=== PATIENT | female | born 1965 | race Caucasian/White ===

== ENCOUNTER 2018-05-05 07:47 | Emergency (ER) | payer OTHER ==
[~2018-05-05] VITALS: Ht 157.5 cm; Wt 77.1 kg
[~2018-05-05 07:47] MED LIST: INTESTINEX1 CA1 PO; Levsin/Sl 0.125 MG TAB.SUBL PO; ZOFRAN ODT4 MG/UDTAB PO
[2018-05-05] MEDS ORDERED: METOPROLOL SUCC25 MG (08:17)
[2018-05-05] MEDS ORDERED: LOSARTAN POTASS50 MG (08:17)
== END 2018-05-05 16:37 | disposition home or self-care (01) ==
LOC: ER 07:47
DX: K52.9 Noninfective gastroenteritis and colitis, unspecified (principal)

== ENCOUNTER 2018-07-08 13:52 | Emergency (ER) | payer OTHER ==
[~2018-07-08] VITALS: Ht 160 cm; Wt 78.5 kg
[~2018-07-08 13:52] MED LIST changes: +LOSARTAN POTASS50 MG; +METOPROLOL SUCC25 MG
[2018-07-08] MEDS ORDERED: TOPROL XL50 M1 (14:16)
[2018-07-08] MEDS ORDERED: SYNTHROID75 MCG (14:16)
== END 2018-07-08 18:37 | disposition home or self-care (01) ==
LOC: ER 13:52
DX: K02.9 Dental caries, unspecified (principal)

== ENCOUNTER 2018-12-04 20:47 | Emergency (ER) | payer OTHER ==
[~2018-12-04] VITALS: Ht 160 cm; Wt 79.4 kg
[~2018-12-04 20:47] MED LIST changes: +SYNTHROID75 MCG; +TOPROL XL50 M1
[2018-12-04] MEDS ORDERED: ZANTAC150 M3 (21:03)
[2018-12-04] MEDS ORDERED: PRILOSEC10 MG (21:04)
[2018-12-05] MEDS ORDERED: PEPCID AC20 MG PO (00:20)
[2018-12-05] MEDS ORDERED: ORPHENADRINE C100 MG PO (00:20)
[2018-12-05] MEDS ORDERED: CELECOXIB200 MG PO (00:20)
[2018-12-05] MEDS ORDERED: ZOFRAN ODT4 MG SL (00:20)
== END 2018-12-05 00:39 | disposition home or self-care (01) ==
LOC: ER 20:47
DX: M25.511 Pain in right shoulder (principal); K29.70 Gastritis, unspecified, without bleeding

== ENCOUNTER → 2019-04-04 | Day surgery (SDC) | payer OTHER ==
[~2019-04-04] MED LIST changes: +CELECOXIB200 MG PO; +ORPHENADRINE C100 MG PO; +PEPCID AC20 MG PO; +PRILOSEC10 MG; +ZANTAC150 M3; +ZOFRAN ODT4 MG SL
== END | disposition home or self-care (01) ==
LOC: ADM 03-13 07:45 → AMB-ENDOS 03-21 07:45
DX: K57.30 Diverticulosis of large intestine without perforation or abscess without bleeding (principal); K92.1 Melena; K64.8 Other hemorrhoids

== ENCOUNTER 2019-10-28 22:50 | Emergency (ER) | payer OTHER ==
[~2019-10-28] VITALS: Ht 157.5 cm; Wt 79.4 kg
[2019-10-29] MEDS ORDERED: VISTARIL50 MG PO (07:36)
== END 2019-10-29 08:56 ==
LOC: ER 22:50 → CPU-OBS 22:55 → ER 10-29 08:56
DX: R00.2 Palpitations (principal); R07.89 Other chest pain; F06.4 Anxiety disorder due to known physiological condition
CPT/HCPCS: G0378; G0379; 93005

== ENCOUNTER 2019-11-19 04:27 | Emergency (ER) | payer OTHER ==
[~2019-11-19] VITALS: Ht 157.5 cm; Wt 78.5 kg
[~2019-11-19 04:27] MED LIST changes: +VISTARIL50 MG PO
[2019-11-19] MEDS ORDERED: VALSARTAN-HCTZ1 EAC2 (04:40)
[2019-11-19] MEDS ORDERED: LIPITOR40 M1 (04:41)
[2019-11-19] MEDS ORDERED: PREVACID30 MG (04:41)
== END 2019-11-19 12:57 | disposition home or self-care (01) ==
LOC: ER 04:27
DX: K52.9 Noninfective gastroenteritis and colitis, unspecified (principal); R10.32 Left lower quadrant pain

== ENCOUNTER 2020-12-28 22:10 | Emergency (ER) | payer OTHER ==
[~2020-12-28] VITALS: Ht 157.5 cm; Wt 79.4 kg
[~2020-12-28 22:10] MED LIST changes: +LIPITOR40 M1; +PREVACID30 MG; +VALSARTAN-HCTZ1 EAC2
[2020-12-28] MEDS ORDERED: TOPROL XL100 M1 PO (22:17)
[2020-12-29] MEDS ORDERED: PYRIDIUM DS200 MG PO (12:24)
[2020-12-29] MEDS ORDERED: LEVSIN/SL0.125 MG PO (12:24)
[2020-12-29] MEDS ORDERED: CELEBREX100 MG PO (12:24)
[2020-12-29] MEDS ORDERED: PEPCID AC20 MG PO (12:38)
== END 2020-12-29 13:23 | disposition home or self-care (01) ==
LOC: ER 22:10
DX: K29.60 Other gastritis without bleeding (principal); T61.774A Other fish poisoning, undetermined, initial encounter; N39.0 Urinary tract infection, site not specified; R10.2 Pelvic and perineal pain; Y92.89 Other specified places as the place of occurrence of the external cause; Z03.818 Encounter for observation for suspected exposure to other biological agents ruled out

== ENCOUNTER 2022-10-07 21:36 | Emergency (ER) | payer OTHER ==
[~2022-10-07] VITALS: Ht 162.6 cm; Wt 83.5 kg
[~2022-10-07 21:36] MED LIST changes: +CELEBREX100 MG PO; +LEVSIN/SL0.125 MG PO; +PYRIDIUM DS200 MG PO; +TOPROL XL100 M1 PO
== END 2022-10-07 22:55 | disposition home or self-care (01) ==
LOC: ER 21:36
DX: H92.01 Otalgia, right ear (principal); Z88.5 Allergy status to narcotic agent; Z88.0 Allergy status to penicillin; I49.9 Cardiac arrhythmia, unspecified; E03.9 Hypothyroidism, unspecified; I10 Essential (primary) hypertension; Z90.89 Acquired absence of other organs; Z82.49 Family history of ischemic heart disease and other diseases of the circulatory system

== ENCOUNTER 2022-10-16 23:30 | Emergency (ER) | payer OTHER ==
[~2022-10-16] VITALS: Ht 157.5 cm; Wt 83.0 kg
[~2022-10-16 23:30] MED LIST changes: +FAMOTIDINE20 MG PO
[2022-10-17] MEDS ORDERED: SYNTHROID75 MCG PO
[2022-10-17] MEDS ORDERED: VALSARTAN-HCTZ1 EAC1 PO
[2022-10-17] MEDS ORDERED: METFORMIN HCL500 M1 PO
[2022-10-17] MEDS ORDERED: ATORVASTATIN CA40 MG PO (00:01)
== END 2022-10-17 02:44 | disposition home or self-care (01) ==
LOC: ER 23:30
DX: E11.649 Type 2 diabetes mellitus with hypoglycemia without coma (principal); E03.9 Hypothyroidism, unspecified; E11.9 Type 2 diabetes mellitus without complications; Z79.84 Long term (current) use of oral hypoglycemic drugs; I10 Essential (primary) hypertension; Z88.0 Allergy status to penicillin; Z91.041 Radiographic dye allergy status; Z88.6 Allergy status to analgesic agent

== ENCOUNTER 2023-08-17 07:18 | Day surgery (SDC) | payer OTHER ==
[~2023-08-17 07:18] MED LIST changes: +ATORVASTATIN CA40 MG PO; +METFORMIN HCL500 M1 PO; +SYNTHROID75 MCG PO; +VALSARTAN-HCTZ1 EAC1 PO
== END 2023-08-17 12:50 | disposition home or self-care (01) ==
LOC: AMB-ENDOS 07:18 → CIR.AMB 13:15 → AMB-ENDOS 13:15
PROVIDERS: ATTEND Colon & Rectal Surgery
DX: D12.3 Benign neoplasm of transverse colon (principal); K62.5 Hemorrhage of anus and rectum; K62.89 Other specified diseases of anus and rectum; Z88.0 Allergy status to penicillin; Z91.041 Radiographic dye allergy status

== ENCOUNTER 2023-09-30 23:05 | Emergency (ER) | payer OTHER ==
[~2023-09-30] VITALS: Ht 160 cm; Wt 81.2 kg
[2023-10-01] MEDS ORDERED: PROTONIX40 MG PO (00:34)
[2023-10-01 08:34] LABS: HEMATOCRIT 37.7 % (36.0-45.00); MEAN CELL VOLUME 90.2 fL (80.00-100.00); MEAN CORPUSCULAR HGB CONC 34.3 g/dl (32.0-36.0); PLATELET COUNT 170 K/uL (150-450); RED BLOOD COUNT 4.18 M/uL (4.00-6.00); RED CELL DISTRIBUTION WIDTH 12.8 % (11.5-14.5)
== END 2023-10-01 11:06 ==
LOC: ER 23:05
DX: B34.8 Other viral infections of unspecified site (principal); Z20.822 Contact with and (suspected) exposure to COVID-19

== ENCOUNTER 2023-12-19 14:47 | Inpatient (IN) | payer OTHER ==
[~2023-12-19] VITALS: Ht 160 cm; Wt 80.3 kg
[~2023-12-19 14:47] MED LIST changes: +PROTONIX40 MG PO
--- NOTE | 2023-12-19 15:27 | NUR ---
SE RECIBE PTE FEMENINA DE 58 ANOS ALERT AY ORIENTADA X3 QUIEN REFIER EDOLOR EN CUADRANTE INFERIOR IZQ DE ABDOMEN SE PALPA Y EL MISMO ES BLANDO Y DEPRESIBLE. PTE INDICA DOLOR EN ANO PUNZANTE. SE MONITOREAN S/V Y SE UBICA EN PASILLO.
[2023-12-19] MEDS ORDERED: 0.9 % SODIUM CHLORIDE 1,000 ML IV ONE (16:15)
--- NOTE | 2023-12-19 16:37 | NUR ---
SE EDUCA A PTE SOBRE [facility] MEDICO, SE JENNIFER MUESTRAS DE LABORATORIO UTILIZNDO MEDIDAS ASEPTICAS. SE COLOCA H/L DOMINIQUE DE EDEMA. SE COLOCA IV FLUIDS A PTE.
[2023-12-19 17:05] LABS: HEMOGLOBIN 14.9 g/dL (12.0-15.00); MEAN CORPUSCULAR HEMOGLOBIN 31.2 pg (27.00-32.0); MEAN CORPUSCULAR HGB CONC 33.9 g/dl (32.0-36.0); PLATELET COUNT 192 K/uL (150-450); RED BLOOD COUNT 4.78 M/uL (4.00-6.00); RED CELL DISTRIBUTION WIDTH 12.7 % (11.5-14.5)
[2023-12-19] MEDS ORDERED: HYOSCYAMINE SULFATE 0.125 MG TAB.SUBL SL ONE (17:15)
[2023-12-19] MEDS ORDERED: ACETAMINOPHEN 500 MG GEL..CAP PO ONE (17:15)
[2023-12-19 17:25] LABS: INR 1.03; PARTIAL THROMBOPLASTIN TIME 28.2 SECONDS (22.0-34.0); PROTHROMBIN TIME 10.8 SECONDS (9.0-11.5)
[2023-12-19 17:31] LABS: URINE APPEARANCE Clear; URINE BILIRRUBIN Negative (NEGATIVE); URINE BLOOD Negative; URINE COLOR Yellow; URINE GLUCOSE Negative (NEGATIVE); URINE LEUKOCYTE Negative; URINE NITRATE Negative; URINE PROTEIN Negative (NEGATIVE); URINE UROBILINOGEN 0.2 E.U./dl
[2023-12-19 17:44] LABS: URINE BACTERIA 0 uL (0.0-1933); URINE EPITHELIAL CELLS 1.2 uL (0.0-38.8); URINE RBC 1.2 uL (0.0-20.8); URINE WBC 0.7 uL (0.0-23.2)
[2023-12-19] MEDS ORDERED: FAMOTIDINE/PF 20 MG/2 ML VIAL IV PUSH ONE (17:45)
[2023-12-19] MEDS ORDERED: ERTAPENEM SODIUM 1,000 MG VIAL IV ONE (19:00)
[2023-12-19 19:04] LABS: ALBUMIN 3.7 gm/dL (3.4-5.0); BILIRUBIN TOTAL 0.63 mg/dL (0.3-1.2); C-REACTIVE PROTEIN 0.49 MG/DL (0.00-0.29); CALCIUM 9.4 mg/dL (8.5-10.1); CREATININE SERUM 0.79 mg/dL (0.55-1.02); GFR 75.01; GLOBULINA 3.8 G/DL (2.4-3.5); POTASSIUM 3.75 mEq/L (3.5-5.1); TOTAL PROTEIN 7.5 gm/dL (6.4-8.2)
[2023-12-19] MEDS ORDERED: PANTOPRAZOLE SODIUM 40 MG/VIAL VIAL IV PUSH ONE (19:30)
[2023-12-19] MEDS ORDERED: ONDANSETRON HCL 4 MG in 0.9 % SODIUM CHLORIDE 50 ML IV PRN (21:30)
[2023-12-19] MEDS ORDERED: ENALAPRILAT DIHYDRATE 1.25 MG/ML VIAL IV PRN (21:30)
[2023-12-19] MEDS ORDERED: 0.9 % SODIUM CHLORIDE 1,000 ML IV SCH (21:30)
[2023-12-19] MEDS ORDERED: DEXTROSE 50 % IN WATER 0.5 G/ML DISP.SYRIN IV PRN (21:30)
[2023-12-19] MEDS ORDERED: ACETAMINOPHEN 500 MG GEL..CAP PO PRN (21:30)
[2023-12-19] MEDS ORDERED: INSULIN LISPRO 1,000 UNIT/10 ML UNITS SUBCUTANEO PRN (21:30)
[2023-12-19] MEDS ORDERED: MEPERIDINE HCL/PF 25 MG/ML VIAL IM PRN (21:30)
[2023-12-19] MEDS ORDERED: HYOSCYAMINE SULFATE 0.125 MG TAB.SUBL PO ONE (21:45)
[2023-12-20] MEDS ORDERED: HYDROCORTISONE 2.5% 30 GM TUBE RECTAL SCH (09:00)
[2023-12-20] MEDS ORDERED: LEVOTHYROXINE SODIUM 75 MCG TABLET PO SCH (09:00)
[2023-12-20] MEDS ORDERED: ENOXAPARIN SODIUM 40 MG/0.4 ML SYRINGE SUBCUTANEO SCH (09:00)
[2023-12-20] MEDS ORDERED: PANTOPRAZOLE SODIUM 40 MG/VIAL VIAL IV SCH (09:00)
[2023-12-20 14:48] LABS: CALCIUM 9.2 mg/dL (8.5-10.1); CREATININE SERUM 0.77 mg/dL (0.55-1.02); GFR 77.27; POTASSIUM 3.8 mEq/L (3.5-5.1)
[2023-12-20] MEDS ORDERED: DEXTROSE 50 % IN WATER 0.5 G/ML DISP.SYRIN IV PRN (15:15)
[2023-12-20] MEDS ORDERED: ENALAPRILAT DIHYDRATE 1.25 MG/ML VIAL IV PRN (15:15)
[2023-12-20] MEDS ORDERED: INSULIN LISPRO 1,000 UNIT/10 ML UNITS SUBCUTANEO PRN (15:15)
[2023-12-20] MEDS ORDERED: ATORVASTATIN CALCIUM 40 MG TABLET PO SCH (17:00)
[2023-12-20] MEDS ORDERED: METOPROLOL SUCCINATE 100 MG TAB.SR.24H PO SCH (17:00)
[2023-12-20] MEDS ORDERED: AA 4.25%/CAL/LYTES/DEXT 5% 1,000 ML PERIFERAL SCH (17:00)
[2023-12-20] MEDS ORDERED: MEROPENEM 500 MG/VIAL VIAL IV SCH (20:00)
[2023-12-20] MEDS ORDERED: ERTAPENEM SODIUM 1,000 MG in 0.9 % SODIUM CHLORIDE 100 ML IV SCH (20:00)
[2023-12-21] MEDS ORDERED: PATIENTS OWN MEDICATION (MEDICAMENTO EN PISO) PO SCH ×2 (06:00→09:00)
[2023-12-21 06:30] LABS: MEAN CELL VOLUME 92.5 fL (80.00-100.00); MEAN CORPUSCULAR HGB CONC 34.6 g/dl (32.0-36.0); PLATELET COUNT 158 K/uL (150-450); RED BLOOD COUNT 3.67 M/uL (4.00-6.00); RED CELL DISTRIBUTION WIDTH 12.4 % (11.5-14.5)
[2023-12-21 07:17] LABS: CALCIUM 8.8 mg/dL (8.5-10.1); CREATININE SERUM 0.77 mg/dL (0.55-1.02); GFR 77.27; MAGNESIUM 2.2 mg/dL (1.8-2.4); PHOSPHOROUS 3.9 mg/dL (2.5-4.9); POTASSIUM 3.74 mEq/L (3.5-5.1); TSH 0.587 uIU/mL (0.358-3.74)
[2023-12-21 07:36] LABS: HEMOGLOBIN 11.7 g/dL (12.0-15.00); MEAN CORPUSCULAR HEMOGLOBIN 31.8 pg (27.00-32.0)
[2023-12-21] MEDS ORDERED: HYDROCHLOROTHIAZIDE 12.5 MG CAPSULE PO SCH (09:00)
[2023-12-21] MEDS ORDERED: HYOSCYAMINE SULFATE 0.125 MG TAB.SUBL SL SCH (12:32)
[2023-12-23 07:29] LABS: CREATININE SERUM 0.65 mg/dL (0.55-1.02); GFR 93.95; MAGNESIUM 2.6 mg/dL (1.8-2.4); PHOSPHOROUS 4.1 mg/dL (2.5-4.9); POTASSIUM 4.59 mEq/L (3.5-5.1)
[2023-12-23] MEDS ORDERED: LEVOTHYROXINE SODIUM 75 MCG TABLET PO SCH (09:00)
[2023-12-23 10:58] LABS: HEMATOCRIT 40.1 % (36.0-45.00); HEMOGLOBIN 13.6 g/dL (12.0-15.00); MEAN CELL VOLUME 92.9 fL (80.00-100.00); MEAN CORPUSCULAR HEMOGLOBIN 31.6 pg (27.00-32.0); PLATELET COUNT 180 K/uL (150-450); RED BLOOD COUNT 4.31 M/uL (4.00-6.00); RED CELL DISTRIBUTION WIDTH 12.1 % (11.5-14.5)
[2023-12-23] MEDS ORDERED: PREDNISOLONE 15 MG/5 ML ML PO SCH (11:00)
[2023-12-26 06:18] LABS: HEMATOCRIT 33.6 % (36.0-45.00); HEMOGLOBIN 11.5 g/dL (12.0-15.00); MEAN CELL VOLUME 91.6 fL (80.00-100.00); MEAN CORPUSCULAR HEMOGLOBIN 31.4 pg (27.00-32.0); MEAN CORPUSCULAR HGB CONC 34.3 g/dl (32.0-36.0); PLATELET COUNT 152 K/uL (150-450); RED BLOOD COUNT 3.66 M/uL (4.00-6.00); RED CELL DISTRIBUTION WIDTH 12.7 % (11.5-14.5)
[2023-12-26 07:03] LABS: ALBUMIN 2.9 gm/dL (3.4-5.0); ALKALINE PHOSPHATASE 64 U/L (50-136); ALT/SGPT 54 U/L (12-78); ANION GAP 10 (10.0-20.0); AST/SGOT 26 U/L (15-37); BILIRUBIN TOTAL 0.37 mg/dL (0.3-1.2); BILIRUBIN,CONJUGATED < 0.10 mg/dL (0.0-0.2); BILIRUBIN,UNCONJUGATED 0.27 mg/dL (0.0-0.6); BLOOD UREA NITROGEN 18 mg/dL (7-18); BUN CREA RATIO 23 (7.0-25.0); CALCIUM 8.6 mg/dL (8.5-10.1); CARBON DIOXIDE 29 mEq/L (21-32); CHLORIDE 107 mmol/L (98-107); CHOL HDL RATIO 3.7 (0-5.0); CHOLESTEROL 130 mg/dL (0-200); GFR 73.93; GLOBULINA 2.7 G/DL (2.4-3.5); GLUCOSE FASTING 87 mg/dL (65-100); HDL 35 mg/dl (40-60); LDL 68 mg/dl (0-130); OSMOLALITY SERUM 283 MOSM/KG (275-295); POTASSIUM 4.61 mEq/L (3.5-5.1); SODIUM 141 mmol/L (136-145); TOTAL PROTEIN 5.6 gm/dL (6.4-8.2); TRIGLYCERIDES 133 mg/dL (0-150); VLDL 26 (0-39)
[2023-12-26 07:10] LABS: INR 1.04; PARTIAL THROMBOPLASTIN TIME 26.7 SECONDS (22.0-34.0); PROTHROMBIN TIME 10.9 SECONDS (9.0-11.5)
[2023-12-26 09:20] LABS: UREA CLEARANCE 40.7 ML/MIN
[2023-12-27] MEDS ORDERED: MORPHINE SULFATE 4 MG/ML CARTRIDGE IV PRN (09:00)
[2023-12-27] MEDS ORDERED: RINGERS SOLUTION,LACTATED 1,000 ML IV SCH (09:00)
[2023-12-27] MEDS ORDERED: FAMOTIDINE/PF 20 MG/2 ML VIAL IV SCH (21:00)
[2023-12-28 06:08] LABS: HEMATOCRIT 34.7 % (36.0-45.00); HEMOGLOBIN 11.9 g/dL (12.0-15.00); MEAN CELL VOLUME 92.1 fL (80.00-100.00); MEAN CORPUSCULAR HEMOGLOBIN 31.5 pg (27.00-32.0); MEAN CORPUSCULAR HGB CONC 34.2 g/dl (32.0-36.0); PLATELET COUNT 136 K/uL (150-450); RED BLOOD COUNT 3.77 M/uL (4.00-6.00); RED CELL DISTRIBUTION WIDTH 12.3 % (11.5-14.5)
[2023-12-28 06:42] LABS: ANION GAP 8 (10.0-20.0); BLOOD UREA NITROGEN 10 mg/dL (7-18); BUN CREA RATIO 15 (7.0-25.0); CALCIUM 9.1 mg/dL (8.5-10.1); CARBON DIOXIDE 29 mEq/L (21-32); CHLORIDE 107 mmol/L (98-107); CREATININE SERUM 0.68 mg/dL (0.55-1.02); GFR 89.18; GLUCOSE FASTING 102 mg/dL (65-100); OSMOLALITY SERUM 279 MOSM/KG (275-295); PHOSPHOROUS 3.8 mg/dL (2.5-4.9); POTASSIUM 4.22 mEq/L (3.5-5.1); SODIUM 140 mmol/L (136-145)
[2023-12-28 06:44] LABS: C-REACTIVE PROTEIN < 0.29 MG/DL (0.00-0.29)
== END 2023-12-28 14:58 | disposition home or self-care (01) | DRG 392 ==
LOC: ER 14:47 → SURG 22:14
PROVIDERS: General Practice; Internal Medicine Geriatric Medicine; ADMIT Colon & Rectal Surgery; ATTEND Colon & Rectal Surgery
PROC: BW21ZZZ Computerized Tomography (CT Scan) of Abdomen and Pelvis (ICD-10-PCS; principal; 2023-12-19)
PROC: BW21ZZZ Computerized Tomography (CT Scan) of Abdomen and Pelvis (ICD-10-PCS; 2023-12-27)
DX: K57.92 Diverticulitis of intestine, part unspecified, without perforation or abscess without bleeding (principal); R63.0 Anorexia; K52.9 Noninfective gastroenteritis and colitis, unspecified; I10 Essential (primary) hypertension; E03.9 Hypothyroidism, unspecified

== ENCOUNTER 2025-06-07 17:08 | Emergency (ER) | payer OTHER ==
[~2025-06-07] VITALS: Ht 157.5 cm; Wt 72.6 kg
[2025-06-07] MEDS ORDERED: 0.9 % SODIUM CHLORIDE 1,000 ML IV SCH (18:45)
[2025-06-07] MEDS ORDERED: FAMOTIDINE/PF 20 MG/2 ML VIAL ONE (19:05)
[2025-06-07 19:13] LABS: BASO % 0.4 % (0.1-1.2); EOS # 0.16 (0.04-0.54); EOS % 2.1 % (0.7-7.0); LYMPH # 1.38 (1.18-3.74); LYMPH % 18.5 % (19.3-53.1); MEAN PLATELET VOLUME 11.90 fl (9.4-12.4); MONO # 0.54 (0.24-0.82); MONO % 7.2 % (4.7-12.5); NEUT # 5.34 (1.56-6.13); NEUT % 71.7 % (34.0-71.1); RED CELL DISTRIBUTION WIDTH 11.7 % (11.6-14.4)
[2025-06-07] MEDS ORDERED: FAMOTIDINE/PF 20 MG/2 ML VIAL IV PUSH ONE (19:15)
[2025-06-07] MEDS ORDERED: DIATRIZOATE MEGLUMINE, SODIUM 30 ML BOTTLE ONE (19:15)
[2025-06-07 19:32] LABS: BUN CREA RATIO 18.0 (7.0-25.0); CREATININE SERUM 0.84 mg/dL (0.55-1.02); GFR 69.4; GLUCOSE FASTING 94.0 mg/dL (65-100); OSMOLALITY SERUM 278.0 MOSM/KG (275-295)
[2025-06-07 20:13] LABS: URINE APPEARANCE Clear; URINE BILIRRUBIN Negative (NEGATIVE); URINE BLOOD Negative; URINE COLOR Yellow; URINE GLUCOSE Negative (NEGATIVE); URINE KETONE Negative (NEGATIVE); URINE LEUKOCYTE Negative; URINE NITRATE Negative; URINE PROTEIN Negative (NEGATIVE); URINE UROBILINOGEN 0.2 E.U./dl
[2025-06-07 20:16] LABS: URINE EPITHELIAL CELLS 2.6 uL (0.0-38.8); URINE RBC 4.2 uL (0.0-20.8)
[2025-06-07 20:17] LABS: URINE BACTERIA 1.1 uL (0.0-1933); URINE CAST 0.00 uL (0.0-1.40); URINE WBC 1.0 uL (0.0-23.2)
[2025-06-07] MEDS ORDERED: ACETAMINOPHEN 500 MG GEL..CAP PO ONE (22:14)
[2025-06-07] MEDS ORDERED: MORPHINE SULFATE 4 MG/ML CARTRIDGE IV ONE (22:15)
[2025-06-07] MEDS ORDERED: ONDANSETRON HCL 2 MG/ML VIAL IV STA (23:24)
[2025-06-07] MEDS ORDERED: ONDANSETRON HCL 2 MG/ML VIAL ONE ×2 (23:48→23:49)
== END 2025-06-08 00:29 | disposition home or self-care (01) ==
LOC: ER 17:08
PROVIDERS: Emergency Medicine
DX: K57.32 Diverticulitis of large intestine without perforation or abscess without bleeding (principal); R10.9 Unspecified abdominal pain; Z88.0 Allergy status to penicillin; Z91.041 Radiographic dye allergy status; Z88.1 Allergy status to other antibiotic agents; E78.00 Pure hypercholesterolemia, unspecified; E03.8 Other specified hypothyroidism; E11.9 Type 2 diabetes mellitus without complications; Z79.84 Long term (current) use of oral hypoglycemic drugs

== ENCOUNTER 2025-07-31 06:00 | Day surgery (SDC) | payer OTHER ==
[2025-07-31] MEDS ORDERED: fentaNYL CITRATE 50 MCG/ML AMPUL IV PUSH ONE (09:45)
[2025-07-31] MEDS ORDERED: DIPHENHYDRAMINE HCL 50 MG/ML VIAL 1ML IV ONE ×2 (09:45)
[2025-07-31] MEDS ORDERED: ONDANSETRON HCL 2 MG/ML VIAL IV ONE (09:45)
[2025-07-31] MEDS ORDERED: MIDAZOLAM HCL 2 MG/2 ML VIAL IV ONE (09:45)
== END 2025-07-31 11:10 | disposition home or self-care (01) ==
LOC: AMB-ENDOS 06:00
PROVIDERS: ATTEND Colon & Rectal Surgery
DX: K57.30 Diverticulosis of large intestine without perforation or abscess without bleeding (principal); Z88.8 Allergy status to other drugs, medicaments and biological substances